=== PATIENT | female | born 1990 | race Caucasian/White ===

== ENCOUNTER 2025-02-28 23:52 | Emergency (ER) | payer SELFPAY ==
[~2025-02-28] VITALS: Ht 162.6 cm; Wt 82.0 kg
[2025-02-28 23:55] VITALS: TEMP 36.7
[2025-03-01 00:45] LABS: BASOPHILS % 1.5 % (0.0-2.0); EOSINOPHILS % 9.6 % (0.0-5.0); HEMATOCRIT. 31.4 % (36.0-48.0); HEMOGLOBIN. 10.1 g/dL (12.0-16.0); LYMPHOCYTES % 27.3 % (20.0-50.0); MEAN PLATELET VOLUME 9.7 fl (7.4-10.4); MONOCYTES % 8.8 % (2.0-8.0); NEUTROPHILS % 52.8 % (40.0-76.0); PLATELET 237 x1000/uL (130-400); RED BLOOD CELL COUNT 4.72 mill/uL (4.2-5.4); RED CELL DISTRIBUTION WIDTH 18.6 % (11.6-14.6)
[2025-03-01 00:53] LABS: ADD RBC MORPHOLOGY YES
[2025-03-01 00:57] LABS: CREATININE 0.7 mg/dL (0.6-1.0); UREA NITROGEN BLOOD 7 mg/dL (9-23)
[2025-03-01 00:58] LABS: TROPONIN I HIGH SENSITIVITY < 4 ng/L (3.0-34)
[2025-03-01] MEDS: ALBUTEROL (0.083%) 2.5MG/3ML NEB HHN ONE (01:13)
[2025-03-01 01:14] VITALS: PULSE 79; RESP 18; O2SAT 98
[2025-03-01 01:26] LABS: HCG SCREEN NEGATIVE
[2025-03-01] MEDS: ACETAMINOPHEN 325MG TABLET PO SCH (03:01)
[2025-03-01] MEDS ORDERED: ALBU90AE INH (03:16)
[2025-03-01] MEDS ORDERED: ACET-2708 MT (03:16)
[2025-03-01 04:05] VITALS: BP 109/61; PULSE 64; RESP 16; O2SAT 98
[2025-03-01 05:42] LABS: PLATELET ESTIMATE NORMAL
== END 2025-03-01 04:13 | disposition home or self-care (01) ==
LOC: ER 23:52
DX: B34.9 Viral infection, unspecified (principal); J45.909 Unspecified asthma, uncomplicated; F41.9 Anxiety disorder, unspecified; Z20.822 Contact with and (suspected) exposure to COVID-19
CPT/HCPCS: 93005; 99284; 80048; 84703; 85025; 84484; 36415; 71045; 94640; 87426; Z7610; 94070; 94664